=== PATIENT | female | born 1985 | race Caucasian/White ===

== ENCOUNTER 2020-11-07 22:07 | Emergency (ER) | payer MEDICAID, OTHER ==
[~2020-11-07] VITALS: Ht 160 cm; Wt 113.3 kg
[2020-11-07 22:51] LABS: BASOPHILS # (AUTO) 0.1 10^3/uL (0.0-0.1); BASOPHILS % (AUTO) 1 % (0-10); EOSINOPHILS # (AUTO) 0.4 10^3/uL (0.0-0.3); EOSINOPHILS % (AUTO) 4 % (0-10); HEMATOCRIT 38 % (35-52); HEMOGLOBIN 12.4 g/dL (11.5-16.0); LYMPHOCYTES # (AUTO) 2.9 10^3/uL (1.0-4.0); LYMPHOCYTES % (AUTO) 31 % (12-44); MEAN CORPUSCULAR HEMOGLOBIN 28 pg (25-34); MEAN CORPUSCULAR HGB CONC 33 g/dL (32-36); MEAN CORPUSCULAR VOLUME 86 fL (80-99); MEAN PLATELET VOLUME 10.1 fL (9.0-12.2); MONOCYTES # (AUTO) 0.5 10^3/uL (0.0-1.0); MONOCYTES % (AUTO) 5 % (0-12); NEUTROPHILS # (AUTO) 5.7 10^3/uL (1.8-7.8); NEUTROPHILS % (AUTO) 59 % (42-75); PLATELET COUNT 283 10^3/uL (130-400); WHITE BLOOD COUNT 9.6 10^3/uL (4.3-11.0)
[2020-11-07 23:03] LABS: INR 0.9 (0.8-1.4); PROTHROMBIN TIME PATIENT 12.9 SEC (12.2-14.7)
[2020-11-07 23:04] LABS: ALBUMIN 3.9 GM/DL (3.2-4.5); CHLORIDE 105 MMOL/L (98-107); POTASSIUM 3.4 MMOL/L (3.6-5.0); SODIUM 141 MMOL/L (135-145)
[2020-11-07 23:05] LABS: CALCIUM 8.8 MG/DL (8.5-10.1)
[2020-11-07 23:07] LABS: GLUCOSE 131 MG/DL (70-105); TOTAL PROTEIN 7.2 GM/DL (6.4-8.2)
[2020-11-07 23:08] LABS: BILIRUBIN,TOTAL 0.2 MG/DL (0.1-1.0); CARBON DIOXIDE 23 MMOL/L (21-32)
[2020-11-07 23:10] LABS: ALKALINE PHOSPHATASE 76 U/L (40-136); CREATININE SERUM 0.84 MG/DL (0.60-1.30); GFR ESTIMATED > 60
[2020-11-07 23:11] LABS: BUN/CREATININE RATIO 18
[2020-11-07 23:13] LABS: ALANINE AMINOTRANSFERASE 18 U/L (0-55)
[2020-11-07 23:14] LABS: MAGNESIUM 1.9 MG/DL (1.6-2.4)
[2020-11-07 23:20] LABS: ACETAMINOPHEN < 10 UG/ML (10-30)
[2020-11-07 23:26] LABS: BILIRUBIN,URINE NEGATIVE (NEGATIVE); CLARITY,URINE CLEAR; COLOR,URINE YELLOW; GLUCOSE, URINE (UA) NEGATIVE (NEGATIVE); KETONES,URINE NEGATIVE (NEGATIVE); LEUKOCYTE ESTERASE ,URINE NEGATIVE (NEGATIVE); NITRITE,URINE NEGATIVE (NEGATIVE); PROTEIN,URINE NEGATIVE (NEGATIVE)
[2020-11-07 23:33] LABS: BACTERIA,URINE TRACE /HPF; RBC,URINE RARE /HPF
[2020-11-07 23:55] LABS: AMPHETAMINE SCREEN, URINE NEGATIVE (NEGATIVE); BARBITURATE SCREEN URINE NEGATIVE (NEGATIVE); BENZODIAZEPINES SCREEN URINE NEGATIVE (NEGATIVE); CANNABINOID SCREEN, URINE NEGATIVE (NEGATIVE); COCAINE SCREEN URINE NEGATIVE (NEGATIVE); METHADONE STAT NEGATIVE (NEGATIVE); METHAMPHETAMINE SCREEN URINE S NEGATIVE (NEGATIVE); OPIATE SCREEN URINE NEGATIVE (NEGATIVE); OXYCODONE STAT NEGATIVE (NEGATIVE); PROPOXYPHENE STAT NEGATIVE (NEGATIVE); TRICYCLIC ANTIDEPRESSANTS SCRE POSITIVE (NEGATIVE)
[2020-11-08 00:26] VITALS: BP 127/85
[2020-11-08 00:27] VITALS: BP 112/76
[2020-11-08 00:28] VITALS: BP 116/70
[2020-11-08] MEDS ORDERED: LACTATED RINGERS 1,000 ML IV ONE (00:45)
--- NOTE | 2020-11-08 00:48 | ED General ---
General Chief Complaint: Dizziness/Syncope Stated Complaint: LIGHTHEADED/DIZZY Nursing Triage Note: STATES BECAME DIZZY AFTER TAKING SERAQUIL 300MG, 800MG IBU, AND 100MG ZOLOFT. DENIES NAUSEA VOMITING, HEADACHE, FEVER, COUGH OR SHORTNESS OF BREATH OR COVID 19 EXPOSURE. Nursing Sepsis Screen: No Definite Risk Allergies and Home Medications Allergies Coded Allergies: No Known Drug Allergies (Unverified , 11/08/20) Past Bzdswit-Qorgzf-Xlcaan Hx Patient Social History Alcohol Use: Denies Use Recreational Drug Use: Yes (CLEAN SINCE August CURRENTLY IN REHAB)) Drug of Choice: METH Recent Foreign Travel: No Contact w/Someone Who Travel: No Recent Infectious Disease Expo: No Recent Hopitalizations: No Physical Abuse: No Sexual Abuse: No Mistreated: No Fear: No Seasonal Allergies Seasonal Allergies: No Past Medical History Surgeries: Yes Section Respiratory: No Cardiac: No Neurological: No Genitourinary: No Gastrointestinal: No Musculoskeletal: No Endocrine: No HEENT: No Cancer: No Psychosocial: Yes (SUBSTANCE ABUSE) Anxiety, Depression Integumentary: No Physical Exam Vital Signs Vital Signs - First Documented 11/07/20 22:30 Temp 36.4 Pulse 101 Resp 16 B/P (MAP) 153/112 (126) Pulse Ox 97 Capillary Refill : Less Than 3 Seconds Height, Weight, BMI Height: '" Weight: lbs. oz. kg; 44.00 BMI Method: Progress/Results/Core Measures Suspected Sepsis Recent Fever Within 48 Hours: No Infection Criteria Present: None New/Unexplained Altered Menta: No Sepsis Screen: No Definite Risk SIRS Temperature: Pulse: 92 Respiratory Rate: 16 Laboratory Tests 11/07/20 22:40: White Blood Count 9.6 Blood Pressure 116 /70 Mean: 85 Laboratory Tests 11/07/20 22:40: Creatinine 0.84, INR Comment 0.9, Platelet Count 283, Total Bilirubin 0.2 Results/Orders Lab Results Laboratory Tests Test 11/07/20 22:40 11/07/20 23:18 Range/Units White Blood Count 9.6 4.3-11.0 10^3/uL Red Blood Count 4.41 3.80-5.11 10^6/uL Hemoglobin 12.4 11.5-16.0 g/dL Hematocrit 38 35-52 % Mean Corpuscular Volume 86 80-99 fL Mean Corpuscular Hemoglobin 28 25-34 pg Mean Corpuscular Hemoglobin Concent 33 32-36 g/dL Red Cell Distribution Width 13.3 10.0-14.5 % Platelet Count 283 130-400 10^3/uL Mean Platelet Volume 10.1 9.0-12.2 fL Immature Granulocyte % (Auto) 1 % Neutrophils (%) (Auto) 59 42-75 % Lymphocytes (%) (Auto) 31 12-44 % Monocytes (%) (Auto) 5 0-12 % Eosinophils (%) (Auto) 4 0-10 % Basophils (%) (Auto) 1 0-10 % Neutrophils # (Auto) 5.7 1.8-7.8 10^3/uL Lymphocytes # (Auto) 2.9 1.0-4.0 10^3/uL Monocytes # (Auto) 0.5 0.0-1.0 10^3/uL Eosinophils # (Auto) 0.4 H 0.0-0.3 10^3/uL Basophils # (Auto) 0.1 0.0-0.1 10^3/uL Immature Granulocyte # (Auto) 0.1 0.0-0.1 10^3/uL Prothrombin Time 12.9 12.2-14.7 SEC INR Comment 0.9 0.8-1.4 Activated Partial Thromboplast Time 31 24-35 SEC Sodium Level 141 135-145 MMOL/L Potassium Level 3.4 L 3.6-5.0 MMOL/L Chloride Level 105 98-107 MMOL/L Carbon Dioxide Level 23 21-32 MMOL/L Anion Gap 13 5-14 MMOL/L Blood Urea Nitrogen 15 7-18 MG/DL Creatinine 0.84 0.60-1.30 MG/DL Estimat Glomerular Filtration Rate > 60 BUN/Creatinine Ratio 18 Glucose Level 131 H 70-105 MG/DL Calcium Level 8.8 8.5-10.1 MG/DL Corrected Calcium 8.9 8.5-10.1 MG/DL Magnesium Level 1.9 1.6-2.4 MG/DL Total Bilirubin 0.2 0.1-1.0 MG/DL Aspartate Amino Transf (AST/SGOT) 15 5-34 U/L Alanine Aminotransferase (ALT/SGPT) 18 0-55 U/L Alkaline Phosphatase 76 40-136 U/L Troponin I < 0.028 <0.028 NG/ML Total Protein 7.2 6.4-8.2 GM/DL Albumin 3.9 3.2-4.5 GM/DL TSH [place] Testing 3.70 0.35-4.94 UIU/ML Serum Test, Qualitative NEGATIVE NEGATIVE Acetaminophen Level < 10 L 10-30 UG/ML Serum Alcohol < 10 <10 MG/DL Urine Color YELLOW Urine Clarity CLEAR Urine pH 6.0 5-9 Urine Specific Manning 1.010 L 1.016-1.022 Urine Protein NEGATIVE NEGATIVE Urine Glucose (UA) NEGATIVE NEGATIVE Urine Ketones NEGATIVE NEGATIVE Urine Nitrite NEGATIVE NEGATIVE Urine Bilirubin NEGATIVE NEGATIVE Urine Urobilinogen 0.2 < = 1.0 MG/DL Urine Leukocyte Esterase NEGATIVE NEGATIVE Urine RBC (Auto) TRACE-I NEGATIVE Urine RBC RARE /HPF Urine WBC NONE /HPF Urine Squamous Epithelial Cells 2-5 /HPF Urine Crystals NONE /LPF Urine Bacteria TRACE /HPF Urine Casts NONE /LPF Urine Mucus NEGATIVE /LPF Urine Culture Indicated NO Urine Opiates Screen NEGATIVE NEGATIVE Urine Oxycodone Screen NEGATIVE NEGATIVE Urine Methadone Screen NEGATIVE NEGATIVE Urine Propoxyphene Screen NEGATIVE NEGATIVE Urine Barbiturates Screen NEGATIVE NEGATIVE Ur Tricyclic Antidepressants Screen POSITIVE H NEGATIVE Urine Phencyclidine Screen NEGATIVE NEGATIVE Urine Amphetamines Screen NEGATIVE NEGATIVE Urine Methamphetamines Screen NEGATIVE NEGATIVE Urine Benzodiazepines Screen NEGATIVE NEGATIVE Urine Cocaine Screen NEGATIVE NEGATIVE Urine Cannabinoids Screen NEGATIVE NEGATIVE My Orders Orders - YADIEL TROTTER DO Ed Iv/Invasive Line Start (11/07/20 22:38) Ekg Tracing (11/07/20 22:38) Monitor-Rhythm Ecg Trace Only (11/07/20 22:38) Orthostatic Vital Signs (Adult (11/07/20 22:38) Acetaminophen (11/07/20 22:38) Alcohol (11/07/20 22:38) Cbc With Automated Diff (11/07/20 22:38) Comprehensive Metabolic Panel (11/07/20 22:38) Drug Screen Stat (Urine) (11/07/20 22:38) Hcg,Qualitative Serum (11/07/20 22:38) Magnesium (11/07/20 22:38) Protime With Inr (11/07/20 22:38) Partial Thromboplastin Time (11/07/20 22:38) Thyroid Analyzer (11/07/20 22:38) Ua Culture If Indicated (11/07/20 22:38) Troponin I (11/07/20 22:38) Ct Head Wo (11/08/20 00:01) Ed Iv/Invasive Line Start (11/08/20 00:31) Lactated Ringers (Lr 1000 Ml Iv Solution (11/08/20 00:45) Medications Given in ED Current Medications Medications Dose Ordered Sig/Wilber Route Start Time Stop Time Status Last Admin Dose Admin Lactated Ringer's 1,000 ml @ 0 mls/hr Q0M ONCE IV 11/08/20 00:45 11/08/20 00:46 DC 11/08/20 00:38 1,000 MLS/HR Vital Signs/I&O 11/07/20 11/08/20 11/08/20 11/08/20 22:30 00:26 00:27 00:28 Temp 36.4 Pulse 101 96 90 92 Resp 16 B/P (MAP) 153/112 (126) 127/85 (99) 112/76 (88) 116/70 (85) Pulse Ox 97 Capillary Refill : Less Than 3 Seconds Blood Pressure Mean: 85 Departure Impression Primary Impression: Mild dehydration Disposition: 01 HOME, SELF-CARE Condition: Improved Departure-Patient Inst. Referrals: [facility] [place] Patient Instructions: Dehydration, Adult ED Add. Discharge Instructions: CONTINUE YOUR MEDICATIONS PRESCRIBED INCREASE YOUR FLUID INTAKE--CLEAR LIQUIDS--WATER, BROTH, JELLO, GATORADE--DRINK ENOUGH SO YOU ARE URINATING EVERY 2-3 HOURS WHILE AWAKE FOLLOW UP WITH YOUR DR THIS WEEK FOR FURTHER CARE All discharge instructions reviewed with patient and/or family. Voiced understanding. YADIEL TROTTER DO Nov 08, 2020 00:48
[2020-11-08 01:37] VITALS: BP 115/87
--- NOTE | 2020-11-08 06:09 | Diagnostic Imaging Report ---
PROCEDURE: CT head without contrast. TECHNIQUE: Multiple contiguous axial images were obtained through the brain without the use of intravenous contrast. Auto Exposure Controls were utilized during the CT exam to meet ALARA standards for radiation dose reduction. INDICATION: Dizziness. COMPARISON: None. FINDINGS: No intracranial hemorrhage, mass effect, hydrocephalus or extra-axial fluid collections. No CT evidence of territorial infarction. Osseous structures are intact. The paranasal sinuses and mastoids are clear. IMPRESSION: No acute intracranial CT findings. Agree with preliminary interpretation. Dictated by: Dictated on workstation # [id number]
== END 2020-11-08 01:37 | disposition home or self-care (01) ==
LOC: ER 22:11
DX: E86.0 Dehydration (principal)
CPT/HCPCS: 36415; 70450; 80053; 80306; 80320; 80329; 81000; 83735; 84443; 84484; 84703; 85025; 85610; 85730; 93005; 93041

== ENCOUNTER 2021-06-07 21:26 | Emergency (ER) | payer SELFPAY ==
[~2021-06-07] VITALS: Ht 160 cm; Wt 118.2 kg
--- NOTE | 2021-06-07 23:03 | ED Headache ---
General Chief Complaint: Head/Cervical Problems Stated Complaint: HEADACHE/ MUSCLE ACHE Nursing Triage Note: AMBULATES TO ROOM #8 W/CO HEADACHE AND BODY ACHES. PT REPORTS "A COUPLE DAYS AGO" SHE DEVELOPED FRONTAL LOBE HEADACHE WITH GENERALIZED BODY ACHES. REPORTS SHE TOOK 800MG IBUPROFEN AT 2030 ON THIS DAY WITH NO RELIEF IN SX. DENIES KNOWN EXPOSURE TO COVID-19 BUT WORKS IN GENERAL PUBLIC AT [employer]. DENIES FURTHER SYMPTOMS. Source: patient History of Present Illness Date Seen by Provider: Jun 07, 2021 Time Seen by Provider: 21:47 Initial Comments PT ARRIVES VIA POV FROM HOME C/O FRONTAL HEADACHE X 3 DAYS ALSO C/O MILD LEFT POSTERIOR NECK PAIN NO VISION CHANGES NO DIZZINESS NO NAUSEA/VOMITING/DIARRHEA NO FEVER NO URI/SINUS SYMPTOMS NO RESPIRATORY SYMPTOMS NO SORE THROAT NO LOSS OF TASTE OR SMELL NO PARESTHESIAS OR MOTOR DEFICITS TOOK IBUPROFEN 800 MG AT 2030 TONIGHT, WITHOUT SIGNIFICANT RELIEF SYMPTOMS ARE NO DIFFERENT TODAY HAS NOT SOUGHT CARE UNTIL TONIGHT PT HAS NOT HAD COVID-19 VACCINE PT DOES WORK AT [employer] PT STATES SHE WAS SEEN AT [facility] 2 WEEKS AGO BECAUSE SHE "JUST HADN'T BEEN FEELING GOOD" AND BP WAS IN 180'S / 120'S AND WAS STARTED ON BLOOD PRESSURE MEDICATION--THINKS LISINOPRIL PT HAS NOT BEEN TAKING IT EVERY DAY, AND HAS NOT TAKEN IT AT ALL FOR THE LAST 3- 4 DAYS LMP 1 WEEK AGO. PT HAS NEXPLANON IN PLACE PCP: [facility] Allergies and Home Medications Allergies Coded Allergies: No Known Drug Allergies (Unverified , 11/08/20) Patient Home Medication List Home Medication List Reviewed: Yes Review of Systems Review of Systems Constitutional: no symptoms reported; No chills, No diaphoresis, No dizziness, No fever Eyes: No Symptoms Reported Ears, Nose, Mouth, Throat: no symptoms reported Respiratory: no symptoms reported Cardiovascular: no symptoms reported Gastrointestinal: no symptoms reported Genitourinary: no symptoms reported Musculoskeletal: see HPI Skin: no symptoms reported Psychiatric/Neurological: See HPI, Headache; Denies Numbness, Denies Paresthesia, Denies Seizure, Denies Tingling, Denies Weakness Past Sahplxh-Haphpl-Frkddn Hx Patient Social History Tobacco Use?: No Substance use?: Yes (SMOKES METH, SNORTS COCAINE. DENIES IV USE. ) Substance type: Methamphetamine, Other (COCAINE) Alcohol Use?: Yes Alcohol Frequency: Once in a while Pt feels they are or have been: No Seasonal Allergies Seasonal Allergies: No Past Medical History Surgeries: Yes ( X 5) Section Respiratory: No Cardiac: Yes Hypertension Neurological: No Reproductive Disorders: No Genitourinary: No Gastrointestinal: No Musculoskeletal: Yes (BILATERAL CARPAL TUNNEL SYMPTOMS) Endocrine: No HEENT: No Cancer: No Psychosocial: Yes (POLYSUBSTANCE ABUSE) Anxiety, Depression Integumentary: No (TATTOOS) Blood Disorders: No Family Medical History SOCIAL HISTORY: -ETOH--HX OF ABUSE -DRUGS--+ METH USE -SMOKES 1 PPD CLAIMS SHE HAS BEEN IN "RECOVERY" SINCE 09/17/29 FROM DRUGS AND ALCOHOL [facility] 09/17/20-10/26/20 THEN TO [facility] [place]. PT CAME TO [facility] FROM [facility]. Physical Exam Vital Signs Vital Signs - First Documented 06/07/21 21:48 Pulse 67 Resp 18 B/P (MAP) 160/104 (122) Pulse Ox 99 O2 Delivery Room Air Capillary Refill : Less Than 3 Seconds Height, Weight, BMI Height: '" Weight: lbs. oz. kg; 46.00 BMI Method: General Appearance: WD/WN, no apparent distress, obese, other (DOES NOT APPEAR ILL OR TO BE IN ANY DISCOMFORT OR DISTRESS) HEENT: PERRL/EOMI, normal ENT inspection, TMs normal, pharynx normal Neck: full range of motion, supple, other (MILD LEFT PARAVERTEBRAL MUSCLE SPASMS AND TENDERNESS. NO RIGIDITY. ) Cardiovascular: normal peripheral pulses, regular rate, rhythm, no edema, no JVD, no murmur Respiratory: normal breath sounds, no respiratory distress, no accessory muscle use Gastrointestinal: non tender, soft Extremities: normal inspection, no pedal edema, normal capillary refill Psychiatric: alert, oriented x 3 Crainal Nerves: normal hearing, normal speech, PERRL Coordination/Gait: normal gait Motor/Sensory: no motor deficit, no sensory deficit Skin: normal color, warm/dry; No rash Progress/Results/Core Measures Results/Orders Lab Results Laboratory Tests Test 06/07/21 21:51 Range/Units Influenza Type A (RT-PCR) Not Detected Not Detecte Influenza Type B (RT-PCR) Not Detected Not Detecte SARS-CoV-2 RNA (RT-PCR) Not Detected Not Detecte My Orders Orders - YADIEL TROTTER DO Covid 19 Inhouse Test (06/07/21 21:47) Influenza A And B By Pcr (06/07/21 21:47) Vital Signs/I&O 06/07/21 06/07/21 21:48 23:09 Pulse 67 79 Resp 18 17 B/P (MAP) 160/104 (122) 135/97 (122) Pulse Ox 99 98 O2 Delivery Room Air Room Air Blood Pressure Mean: 122 Progress Progress Note : Progress Note PLACED IN ISOLATION ROOM PPE WORN AT ALL TIMES COVID-19 TESTING PERFORMED BP DOWN TO 130'S/90'S AT DISMISSAL, WITHOUT TREATMENT, AND HEADACHE IS BETTER Departure Impression Primary Impression: HTN (hypertension) Additional Impression: Person under investigation for COVID-19 Disposition: 01 HOME, SELF-CARE Condition: Improved Departure-Patient Inst. Decision time for Depature: 23:03 Referrals: [facility] Patient Instructions: High Blood Pressure ED, DASH Diet, Medicines for High Blood Pressure Add. Discharge Instructions: TAKE YOUR BLOOD PRESSURE MEDICATION PRESCRIBED TYLENOL 1 GRAM / MOTRIN 800 MG 4 TIMES A DAY NEEDED FOR PAIN FOLLOW UP WITH [facility] IN 3-4 DAYS FOR FURTHER CARE All discharge instructions reviewed with patient and/or family. Voiced understanding. YADIEL TROTTER DO Jun 07, 2021 23:03
[2021-06-07 23:09] VITALS: BP 135/97
== END 2021-06-07 23:09 | disposition home or self-care (01) ==
LOC: EDUNIT# 21:26 → ER 21:32
DX: I10 Essential (primary) hypertension (principal); E66.9 Obesity, unspecified; Z68.42 Body mass index [BMI] 45.0-49.9, adult; Z20.822 Contact with and (suspected) exposure to COVID-19
CPT/HCPCS: 87636; 99282

== ENCOUNTER 2021-07-19 13:37 | Emergency (ER) | payer SELFPAY ==
[~2021-07-19] VITALS: Ht 167.7 cm; Wt 122.5 kg
[2021-07-19] MEDS ORDERED: NS IV 1000 ML 1,000 ML IV SCH (14:00)
[2021-07-19] MEDS ORDERED: KETOROLAC 30 MG/ML VIAL IVP ONE (14:00)
[2021-07-19] MEDS ORDERED: NS IV 1000 ML 1,000 ML ONE (14:01)
[2021-07-19] MEDS ORDERED: KETOROLAC 30 MG/ML VIAL ONE (14:01)
[2021-07-19 14:06] LABS: BASOPHILS % (AUTO) 0 % (0-10); EOSINOPHILS % (AUTO) 1 % (0-10); HEMATOCRIT 42 % (35-52); HEMOGLOBIN 13.6 g/dL (11.5-16.0); LYMPHOCYTES # (AUTO) 0.9 10^3/uL (1.0-4.0); LYMPHOCYTES % (AUTO) 21 % (12-44); MEAN CORPUSCULAR HEMOGLOBIN 28 pg (25-34); MEAN CORPUSCULAR HGB CONC 33 g/dL (32-36); MEAN CORPUSCULAR VOLUME 86 fL (80-99); MEAN PLATELET VOLUME 10.3 fL (9.0-12.2); MONOCYTES # (AUTO) 0.3 10^3/uL (0.0-1.0); MONOCYTES % (AUTO) 6 % (0-12); NEUTROPHILS # (AUTO) 3.1 10^3/uL (1.8-7.8); NEUTROPHILS % (AUTO) 71 % (42-75); PLATELET COUNT 218 10^3/uL (130-400); WHITE BLOOD COUNT 4.4 10^3/uL (4.3-11.0)
--- NOTE | 2021-07-19 14:07 | ED Cough/URI ---
General Chief Complaint: Cough/Cold/Flu Symptoms Stated Complaint: COVID+, BODY ACHES,LIGHT HEADED Nursing Triage Note: PT AMB TO RM 10 WITH COMPLAINT OF MALAISE AND BODY ACHES. PT IS COVID +. TESTED ON THE . STATES SHE FEELS BAD ALL OVER. Source: patient Exam Limitations: no limitations History of Present Illness Date Seen by Provider: Jul 19, 2021 Time Seen by Provider: 13:50 Initial Comments Patient is a 35-year-old female who presents to the emergency room today with a chief complaint of generalized malaise, weakness, body aches. She has cough, loss of taste and smell a little bit of nausea. Patient states she started getting symptoms on 13 July, just upper respiratory type symptoms and then on 15 July tested positive for Covid at [facility] walk-in. Patient denies any comorbidities but states she has been told in the past her blood pressure is a little high. She is not a diabetic. 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 She states that she feels a little lightheaded and dizzy when she walks. Her appetite is slightly diminished secondary to loss of taste and smell. No diarrhea, no urinary complaints. No earache, sore throat or runny nose. She states her symptoms have progressively worsened since her diagnosis. All other review of systems reviewed and negative except as stated. Timing/Duration: week, getting worse Severity/Quality: dry cough Associated Symptoms: cough, fever/chills, lightheadedness, muscle aches, nasal congestion Allergies and Home Medications Allergies Coded Allergies: No Known Drug Allergies (Unverified , 11/08/20) Patient Home Medication List Home Medication List Reviewed: Yes Review of Systems Review of Systems Constitutional: see HPI, chills, malaise, weakness EENTM: nose congestion Respiratory: cough Gastrointestinal: no symptoms reported Genitourinary: no symptoms reported : No Musculoskeletal: back pain, muscle pain Skin: no symptoms reported Psychiatric/Neurological: Anxiety All Other Systems Reviewed Negative Unless Noted: Yes Past Cunylsi-Nidrdh-Mostww Hx Patient Social History Tobacco Use?: No Use of E-Cig and/or Vaping dev: No Substance use?: No Pt feels they are or have been: No Seasonal Allergies Seasonal Allergies: No Past Medical History Surgeries: Yes ( X 5) Section Respiratory: No Cardiac: Yes Hypertension Neurological: No Reproductive Disorders: No Genitourinary: No Gastrointestinal: No Musculoskeletal: Yes (BILATERAL CARPAL TUNNEL SYMPTOMS) Endocrine: No HEENT: No Cancer: No Psychosocial: Yes (POLYSUBSTANCE ABUSE) Anxiety, Depression Integumentary: No (TATTOOS) Blood Disorders: No Family Medical History SOCIAL HISTORY: -ETOH--HX OF ABUSE -DRUGS--+ METH USE -SMOKES 1 PPD CLAIMS SHE HAS BEEN IN "RECOVERY" SINCE 09/17/29 FROM DRUGS AND ALCOHOL [facility] 09/17/20-10/26/20 THEN [facility] [place]. PT CAME TO [facility] FROM [facility]. Physical Exam Vital Signs - First Documented Capillary Refill : Less Than 3 Seconds Height: '" Weight: lbs. oz. kg; 43.00 BMI Method: General Appearance: WD/WN, no apparent distress Eyes: Bilateral Eye Normal Inspection, Bilateral Eye PERRL, Bilateral Eye EOMI HEENT: PERRL/EOMI Neck: normal inspection Respiratory: no respiratory distress, no accessory muscle use, other (Coarse breath sounds posteriorly in the bilateral bases, no wheezing no increased work of breathing, no respiratory distress) Cardiovascular: regular rate, rhythm, tachycardia (Heart rate 105) Gastrointestinal: normal bowel sounds, non tender, soft Extremities: normal range of motion, non-tender, normal inspection, no pedal edema, no calf tenderness Neurologic/Psychiatric: alert, normal mood/affect, oriented x 3 Skin: normal color, warm/dry Progress/Results/Core Measures Suspected Sepsis SIRS Temperature: Pulse: 107 Respiratory Rate: 22 Laboratory Tests 07/19/21 13:54: White Blood Count 4.4 Blood Pressure 154 /106 Mean: 122 Laboratory Tests 07/19/21 13:54: Creatinine 0.82, Platelet Count 218 Results/Orders Lab Results Laboratory Tests Test 07/19/21 13:54 Range/Units White Blood Count 4.4 4.3-11.0 10^3/uL Red Blood Count 4.83 3.80-5.11 10^6/uL Hemoglobin 13.6 11.5-16.0 g/dL Hematocrit 42 35-52 % Mean Corpuscular Volume 86 80-99 fL Mean Corpuscular Hemoglobin 28 25-34 pg Mean Corpuscular Hemoglobin Concent 33 32-36 g/dL Red Cell Distribution Width 13.2 10.0-14.5 % Platelet Count 218 130-400 10^3/uL Mean Platelet Volume 10.3 9.0-12.2 fL Immature Granulocyte % (Auto) 1 % Neutrophils (%) (Auto) 71 42-75 % Lymphocytes (%) (Auto) 21 12-44 % Monocytes (%) (Auto) 6 0-12 % Eosinophils (%) (Auto) 1 0-10 % Basophils (%) (Auto) 0 0-10 % Neutrophils # (Auto) 3.1 1.8-7.8 10^3/uL Lymphocytes # (Auto) 0.9 L 1.0-4.0 10^3/uL Monocytes # (Auto) 0.3 0.0-1.0 10^3/uL Eosinophils # (Auto) 0.0 0.0-0.3 10^3/uL Basophils # (Auto) 0.0 0.0-0.1 10^3/uL Immature Granulocyte # (Auto) 0.0 0.0-0.1 10^3/uL Sodium Level 134 L 135-145 MMOL/L Potassium Level 3.8 3.6-5.0 MMOL/L Chloride Level 101 98-107 MMOL/L Carbon Dioxide Level 26 21-32 MMOL/L Anion Gap 7 5-14 MMOL/L Blood Urea Nitrogen 11 7-18 MG/DL Creatinine 0.82 0.60-1.30 MG/DL Estimat Glomerular Filtration Rate 79 BUN/Creatinine Ratio 13 Glucose Level 124 H 70-105 MG/DL Calcium Level 8.1 L 8.5-10.1 MG/DL Serum Test, Qualitative NEGATIVE NEGATIVE My Orders Orders - VERA AGUILAR MD Ns Iv 1000 Ml (Sodium Chloride 0.9%) (07/19/21 14:00) Ketorolac Injection (Toradol Injection) (07/19/21 14:00) Ed Iv/Invasive Line Start (07/19/21 14:00) Cbc With Automated Diff (07/19/21 14:00) Basic Metabolic Panel (07/19/21 14:00) Hcg,Qualitative Serum (07/19/21 14:00) Chest 1 View, Ap/Pa Only (07/19/21 14:00) Ketorolac Injection (Toradol Injection) (07/19/21 14:01) Ns Iv 1000 Ml (Sodium Chloride 0.9%) (07/19/21 14:01) Medications Given in ED Current Medications Medications Dose Ordered Sig/Wilber Route Start Time Stop Time Status Last Admin Dose Admin Ketorolac Tromethamine 30 mg ONCE ONCE IVP 07/19/21 14:00 07/19/21 14:02 DC 07/19/21 14:03 30 MG Vital Signs/I&O 07/19/21 07/19/21 13:49 13:49 Pulse 107 Resp 22 B/P (MAP) 154/106 (122) Pulse Ox 96 O2 Delivery Room Air Room Air Capillary Refill : Less Than 3 Seconds Blood Pressure Mean: 122 Progress Note : Time: 14:04 Progress Note Patient overall looks fairly well, she is a little tachycardic on arrival. Her blood pressure is good her oxygen saturations are 95 to 96% on room air. Patient is about 8 days into her illness. We'll check basic labs and a chest x-ray. Give her a liter of fluids and some Toradol for her headache. Patient is advised of the monoclonal antibody Regeneron. She would meet inclusion criteria based on her obesity and BMI greater than 25. I have advised her of the risks and benefits of this infusion including allergic reaction/medication reaction and the fact that it is approved under EUA currently. Patient is eager to receive this therapy, verbalizes understanding of the risks and benefits. We'll get this ordered to complete hopefully this week. Departure Impression Primary Impression: COVID-19 Disposition: 01 HOME, SELF-CARE Condition: Stable Departure-Patient Inst. Decision time for Depature: 15:02 Referrals: [facility]/AURELIO LAW,LOCAL PHYSICIAN (PCP) Primary Care Physician Patient Instructions: COVID-19 Overview Add. Discharge Instructions: Drink lots of fluids to stay well hydrated. Take over the counter Ibuprofen 800mg every 8 hours with food as needed for headache/body aches. Please come back in for your Regeneron Infusion. The hospital will contact you for a time and date (within the 3 days). Please come back in for any worsening cough, shortness of breath, high fever or other emergent concerns. Follow up with [facility]. VERA AGUILAR MD Jul 19, 2021 14:07
[2021-07-19 14:24] LABS: POTASSIUM 3.8 MMOL/L (3.6-5.0)
[2021-07-19 14:25] LABS: CALCIUM 8.1 MG/DL (8.5-10.1)
[2021-07-19 14:29] LABS: CREATININE SERUM 0.82 MG/DL (0.60-1.30)
--- NOTE | 2021-07-19 14:54 | Diagnostic Imaging Report ---
INDICATION: Fevers and chills. COMPARISON: None. FINDINGS: Single view of the chest demonstrates questionable infiltrate in the right base. The heart is normal. There is no pneumothorax. Left lung is clear. Osseous structures are stable. IMPRESSION: Questionable infiltrate in the right base. Dictated by: Dictated on workstation # [id number]
[2021-07-19 15:17] VITALS: BP 132/86
== END 2021-07-19 15:16 | disposition home or self-care (01) ==
LOC: EDUNIT# 13:37 → ER 13:38
DX: U07.1 COVID-19 (principal); I10 Essential (primary) hypertension; F17.210 Nicotine dependence, cigarettes, uncomplicated; Z73.0 Burn-out
CPT/HCPCS: 36415; 71045; 80048; 84703; 85025

== ENCOUNTER 2021-07-21 09:39 | Outpatient (CLI) | payer SELFPAY ==
[~2021-07-21] VITALS: Ht 160 cm; Wt 122.5 kg
[2021-07-21 09:46] VITALS: BP 179/89
[2021-07-21 09:49] VITALS: BP 179/89
[2021-07-21] MEDS ORDERED: EPINEPHrine INJECTION 1 MG/ML AMP IM PRN (10:00)
[2021-07-21] MEDS ORDERED: diphenhydrAMINE 50 MG/ML INJ (BENADRYL) IV PRN (10:00)
[2021-07-21] MEDS ORDERED: ACETAMINOPHEN 500 MG TAB (TYLENOL) PO PRN (10:00)
[2021-07-21] MEDS ORDERED: ONDANSETRON 4 MG/2 ML (SDV) Z0FRAN IV PRN (10:00)
[2021-07-21] MEDS ORDERED: CASIRIVIMAB/IMDEVIMAB 1,200 MG in NS (IVPB) 250 ML IV ONE (10:00)
== END 2021-07-21 11:15 | disposition home or self-care (01) ==
LOC: INFUSION 09:39
PROVIDERS: ATTEND Emergency Medicine
DX: Z23 Encounter for immunization (principal); U07.1 COVID-19

== ENCOUNTER 2022-04-06 09:45 | Emergency (ER) | payer SELFPAY ==
[~2022-04-06] VITALS: Ht 160 cm; Wt 109.1 kg
[2022-04-06 09:52] VITALS: BP 159/113
[2022-04-06] MEDS ORDERED: KETOROLAC 30 MG/ML VIAL IM STA (09:57)
--- NOTE | 2022-04-06 10:02 | ED GU-Female ---
General Stated Complaint: CRAMPING - VAGINAL BLEEDING Source: patient Exam Limitations: no limitations History of Present Illness Date Seen by Provider: April 06, 2022 Time Seen by Provider: 09:53 Initial Comments 36-year-old female with no pertinent past medical history coming in due to vaginal bleeding. She says she has been on her period for roughly 4 days, the bleeding is somewhat heavier than it typically is. LMP prior to this 1 was last month. She does have implantable control in her arm as well. She has some mild cramping which she is taking in Tylenol which helped somewhat. Last took it 30 minutes ago. She has gone through 3 pads roughly in the past 24 hours. She is otherwise denying any other acute complaints. Allergies and Home Medications Allergies Coded Allergies: No Known Drug Allergies (Unverified , 11/08/20) Patient Home Medication List Home Medication List Reviewed: Yes Review of Systems Review of Systems Constitutional: No chills, No fever EENTM: No blurred vision Respiratory: No cough Cardiovascular: No chest pain Gastrointestinal: abdominal pain (Cramping); No nausea, No vomiting Genitourinary: denies burning, denies discharge; other (Vaginal bleeding) Musculoskeletal: no symptoms reported Skin: no symptoms reported Psychiatric/Neurological: No Symptoms Reported Endocrine: No Symptoms Reported Hematologic/Lymphatic: No Symptoms Reported All Other Systemes Reviewed Negative Unless Noted: Yes Past Imdikoa-Smbsfg-Jrfola Hx Patient Social History Substance use?: No Seasonal Allergies Seasonal Allergies: No Past Medical History Surgeries: Yes ( X 5) Section Respiratory: No Cardiac: Yes Hypertension Neurological: No Reproductive Disorders: No Genitourinary: No Gastrointestinal: No Musculoskeletal: Yes (BILATERAL CARPAL TUNNEL SYMPTOMS) Endocrine: No HEENT: No Cancer: No Psychosocial: Yes (POLYSUBSTANCE ABUSE) Anxiety, Depression Integumentary: No (TATTOOS) Blood Disorders: No Family Medical History SOCIAL HISTORY: -ETOH--HX OF ABUSE -DRUGS--+ METH USE -SMOKES 1 PPD CLAIMS SHE HAS BEEN IN "RECOVERY" SINCE 09/17/29 FROM DRUGS AND ALCOHOL [facility] 09/17/20-10/26/20 THEN TO WOMEN'S CORRECTION HERE IN [place]. PT CAME TO [facility] FROM [facility]. Physical Exam Vital Signs Vital Signs - First Documented 04/06/22 09:52 Temp 36.1 Pulse 80 Resp 20 B/P (MAP) 159/113 (128) Pulse Ox 97 O2 Delivery Room Air Capillary Refill : Height, Weight, BMI Height: '" Weight: lbs. oz. kg; 43.00 BMI Method: General Appearance: WD/WN, no apparent distress HEENT: PERRL/EOMI, normal ENT inspection, pharynx normal Neck: non-tender, full range of motion, supple, normal inspection Cardiovascular: regular rate, rhythm, no edema, no murmur Respiratory: chest non-tender, lungs clear, normal breath sounds, no respiratory distress, no accessory muscle use Gastrointestinal: normal bowel sounds, non tender, soft; No distended, No guarding, No rebound Back: normal inspection, no CVA tenderness, no vertebral tenderness Extremities: normal range of motion, non-tender, normal inspection, no pedal edema, no calf tenderness, normal capillary refill Neurologic/Psychiatric: no motor/sensory deficits, alert, normal mood/affect Skin: normal color, warm/dry Lymphatic: no adenopathy Progress/Results/Core Measures Suspected Sepsis SIRS Temperature: Pulse: Respiratory Rate: Blood Pressure / Mean: Results/Orders Lab Results Laboratory Tests Test 04/06/22 10:08 Range/Units Urine Color YELLOW Urine Clarity CLEAR Urine pH 7.0 5-9 Urine Specific [place] 1.015 L 1.016-1.022 Urine Protein NEGATIVE NEGATIVE Urine Glucose (UA) NEGATIVE NEGATIVE Urine Ketones NEGATIVE NEGATIVE Urine Nitrite NEGATIVE NEGATIVE Urine Bilirubin NEGATIVE NEGATIVE Urine Urobilinogen 0.2 < = 1.0 MG/DL Urine Leukocyte Esterase NEGATIVE NEGATIVE Urine RBC (Auto) 3+ H NEGATIVE Urine RBC 25-50 H /HPF Urine WBC RARE /HPF Urine Squamous Epithelial Cells 5-10 /HPF Urine Crystals NONE /LPF Urine Bacteria TRACE /HPF Urine Casts NONE /LPF Urine Mucus NEGATIVE /LPF Urine Culture Indicated NO My Orders Orders - MESERET HAYDEN MD Ua Culture If Indicated (04/06/22 09:57) Urine Bedside (04/06/22 09:57) Ketorolac Injection (Toradol Injection) (04/06/22 09:57) Vital Signs/I&O 04/06/22 09:52 Temp 36.1 Pulse 80 Resp 20 B/P (MAP) 159/113 (128) Pulse Ox 97 O2 Delivery Room Air Capillary Refill : Progress Note : Progress Note 36-year-old female with above history coming in due to vaginal bleeding while on her period. ABCs were intact and vitals were stable on presentation. Physical exam reassuring including a nontender abdomen. She was given Toradol IM for pain. test negative. She is only gone through 3 pads in the past 24 hours which is reassuring. I will refer her back to her mortgage manager if this becomes a recurrent issue, however this is within the range of normal. I believe she stable for discharge with outpatient follow-up. She was sent home with strict return precautions. Departure Impression Primary Impression: Menstrual bleeding problem Disposition: HOME, SELF-CARE Condition: Stable Departure-Patient Inst. Referrals: [facility] (PCP/Family) Primary Care Physician MISSY GILLESPIE DO Patient Instructions: Heavy Periods ED Add. Discharge Instructions: I would have you follow-up with your mortgage manager if things are not improving. If you do not have a medical [facility] or like a new one, Dr. GILLESPIE is a great one. [facility] does not require insurance if you need someone else. Both of the numbers are in this paperwork. Ibuprofen and or Tylenol as needed for cramps. If you start saturating more than 1 pad per hour for several hours then I want you to come back to the ER. Work/School Note: Work Release Form Date Seen in the Emergency Department: April 06, 2022 Return to Work: April 07, 2022 Restrictions: No Restrictions MESERET HAYDEN MD April 06, 2022 10:02
[2022-04-06 10:17] LABS: BILIRUBIN,URINE NEGATIVE (NEGATIVE); CLARITY,URINE CLEAR; COLOR,URINE YELLOW; GLUCOSE, URINE (UA) NEGATIVE (NEGATIVE); KETONES,URINE NEGATIVE (NEGATIVE); LEUKOCYTE ESTERASE ,URINE NEGATIVE (NEGATIVE); NITRITE,URINE NEGATIVE (NEGATIVE); PROTEIN,URINE NEGATIVE (NEGATIVE)
[2022-04-06 10:24] LABS: BACTERIA,URINE TRACE /HPF; RBC,URINE 25-50 /HPF; WBC,URINE RARE /HPF
== END 2022-04-06 10:58 | disposition home or self-care (01) ==
LOC: EDUNIT# 09:45 → ER 09:47
DX: N92.0 Excessive and frequent menstruation with regular cycle (principal); Z32.02 Encounter for pregnancy test, result negative
CPT/HCPCS: 81000; 84703; 99284